=== PATIENT | female | born 1965 | race African-American/Black ===

== ENCOUNTER 2021-06-16 13:19 | Emergency (ER) | payer OTHER ==
[~2021-06-16] VITALS: Ht 162.6 cm; Wt 83.5 kg
[~2021-06-16 13:19] MED LIST: ASPIRIN EC81 M1 PO; BACTRIM DS TAB1 EACH PO; IBUPROFEN 800800 MG PO; LEVOXYL125 MCG PO; LISINOPRIL2.5 MG PO; MEDROLDOSEPACK PO; NORCO 5-325 TA1 EACH PO; ONDANSETRON HCL4 M2 PO; VITAMIN D 5050000 I1 PO
[2021-06-16 14:14] LABS: BASOPHILS 2.3 % (0.0-2.0); EOSINOPHILS 1.7 % (0.0-3.0); HEMATOCRIT 39.6 % (37.0-47.0); HEMOGLOBIN 13.2 gm/dL (12.0-15.0); LYMPHOCYTES 43.1 % (24.0-44.0); MCH 29.8 pg (26.0-34.0); MCHC 33.2 g/dL (28.0-37.0); MCV 89.7 fL (80.0-100.0); MONOCYTES 4.9 % (1.0-8.0); PLATELET COUNT 325 thou/uL (150-400); RBC 4.42 mil/uL (4.20-5.00); RDW 13.9 % (10.5-14.5); WBC 8.4 thou/uL (4.0-11.0)
[2021-06-16 14:26] LABS: CALCIUM 9.3 mg/dL (8.5-10.1); CREATININE 1.1 mg/dL (0.6-1.0); POTASSIUM 3.8 mmol/L (3.5-5.1)
[2021-06-16 15:25] VITALS: BP 122/64
--- NOTE | 2021-06-17 09:55 | EKG ---
[address] [address] ELECTROCARDIOGRAM REPORT Name: SAHIL GRAHAM [id number] Admission: 06/16/21 Attend Phys: Discharge: 06/16/21 Date of : 63 Report #: [id number] [facility] ED Test Date: 2021-06-16 Test Time: 15:09:47 Pat Name: SAHIL GRAHAM Department: Room: Gender: [employer]: [place] : 1965 Requested By: Enrique Alicea Order Number: [id number] MD: Owen Lala Measurements Intervals [place] Rate: 63 P: 22 SC: 181 QRS: 9 QRSD: 93 T: 7 QT: 444 QTc: 455 Interpretive Statements Sinus rhythm Compared to ECG 04/27/2011 12:51:09 No significant changes Electronically Signed On 06-17-2021 9:55:27 [employer] by Owen Lala [email or web address] <ELECTRONICALLY SIGNED> By: Owen Lala MD 06/17/21 [id number] Owen Lala MD /EPI
== END 2021-06-16 15:26 | disposition home or self-care (01) ==
LOC: ER 13:19
PROVIDERS: Emergency Medicine
DX: S80.12XA Contusion of left lower leg, initial encounter (principal); M25.462 Effusion, left knee; R42 Dizziness and giddiness; R51.9 Headache, unspecified; I10 Essential (primary) hypertension; E03.9 Hypothyroidism, unspecified; M79.662 Pain in left lower leg; F17.210 Nicotine dependence, cigarettes, uncomplicated; Z98.890 Other specified postprocedural states; Z79.899 Other long term (current) drug therapy; Z79.82 Long term (current) use of aspirin; Z88.5 Allergy status to narcotic agent; X58.XXXA Exposure to other specified factors, initial encounter; Y93.89 Activity, other specified; Y92.89 Other specified places as the place of occurrence of the external cause; Y99.8 Other external cause status